=== PATIENT | male | born 1990 | race Caucasian/White ===

== ENCOUNTER 2017-12-22 17:38 | Emergency (ER) | payer BC ==
[2017-12-22] MEDS ORDERED: EPINEPHrine AMP 1 MG/ML IM ONE (17:43)
[2017-12-22] MEDS ORDERED: predniSONE TAB* 20 MG PO ONE (17:44)
[2017-12-22 17:45] VITALS: BP 136/79
[2017-12-22] MEDS ORDERED: EPINEPHRINE 1 MG/ML 1 ML VIAL ONE (17:45)
--- NOTE | 2017-12-22 17:59 | UC ---
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 stung left lower leg about thirty minutes after the sting he started feeling itchy noted the stinger was still in he removed it took benadryl arrived here with hives and angioedema (lips and lids) no throat tightness no cp/sob no n/v no hx of similar rx to stings - History of Current Complaint Chief Complaint: UCAllergicReaction Stated Complaint: BEE STING ALLEGRIC REACTION Time Seen by Provider: 12/22/17 17:43 Hx Obtained From: Patient Onset/Duration: Gradual Onset, Lasting Minutes Severity Initially: Mild Severity Currently: Moderate Pain Intensity: 0 Pain Scale Used: 0-10 Numeric Location: Diffuse - hives Character: Swelling - lids and lids Aggravating Factor(s): Nothing Alleviating Factor(s): Nothing Associated Signs And Symptoms: Positive: Rash - Related Hx Possible Reaction To: Insect - Allergies/Home Medications Allergies/Adverse Reactions: Allergies Allergy/AdvReac Type Severity Reaction Status Date / Time bee venom protein (honey bee) Allergy FLUSHING/LIP Verified 12/22/17 17:46 SWELLING Home Medications: Home Medications diphenhydrAMINE HCl [Benadryl Allergy 25 MG CAP] 50 mg PO ONCE PRN 12/22/17 [ History Confirmed 12/22/17] PMH/Surg Hx/FS Hx/Imm Hx Previously Healthy: Yes - Surgical History Surgical History: None - Family History Known Family History: Positive: Hypertension, Other - parents living and healthy , no one with immune compromise. - Social History Alcohol Use: Rare Substance Use Type: None Smoking Status (MU): Never Smoked Tobacco Type: Cigars Amount Used/How Often: TWICE A YR Length of Time of Smoking/Using Tobacco: 4-5 YRS Have You Smoked in the Last Year: Yes - Immunization History Most Recent Influenza Vaccination: not this season Review of Systems Constitutional: Negative Skin: Rash Eyes: Negative ENT: Negative Respiratory: Negative Cardiovascular: Negative Gastrointestinal: Negative Genitourinary: Negative Motor: Negative Neurovascular: Negative Musculoskeletal: Negative Neurological: Negative Psychological: Negative Is Patient Immunocompromised?: No All Other Systems Reviewed And Are Negative: Yes Physical Exam Triage Information Reviewed: Yes Appearance: Well-Appearing, No Pain Distress, Well-Nourished Vital Signs: Initial Vital Signs Temp 99.8 F 12/22/17 17:39 Pulse 98 12/22/17 17:39 Resp 22 12/22/17 17:39 BP 136/79 12/22/17 17:39 Pulse Ox 100 12/22/17 17:39 Vital Signs Reviewed: Yes Eyes: Positive: Conjunctiva Clear, Other: - lid edema ENT: Positive: Hearing grossly normal, TMs normal, Other - lip edema/no tongue edema/no stridor. Negative: Pharyngeal erythema, Nasal congestion, Nasal drainage, Tonsillar swelling, Tonsillar exudate, Trismus, Muffled voice, Hoarse voice Neck: Positive: Supple, Nontender, No Lymphadenopathy Respiratory: Positive: Lungs clear, Normal breath sounds, No respiratory distress, No accessory muscle use Cardiovascular: Positive: RRR Abdominal Exam: Normal Musculoskeletal: Positive: ROM Intact, No Edema Neurological Exam: Normal Neurological: Positive: Alert Psychological Exam: Normal Re-Evaluation - Re-Evaluation First Eval Re-Evaluation Time: 18:35 Change: Improved - lips only minimally swollen/urticaria almost gone Allergic Reaction Course/Dx - Differential Dx/Diagnosis Provider Diagnoses: analphylatic reaction to bee sting Discharge - Sign-Out/Discharge Documenting (check all that apply): Discharge - Discharge Plan Condition: Stable Disposition: HOME Prescriptions: EPINEPHrine [Epipen 2-Carlos] 0.3 mg IM ONCE #1 inj predniSONE [Deltasone] 40 mg PO DAILY #6 tab Patient Education Materials: Anaphylaxis (ED) Referrals: Enmanuel Fong MD [Medical Doctor] - Additional Instructions: YOU NEED TO FOLLOW UP WITH AN STENO TYPIST YOU NEED TO CARRY AN EPI PEN WITH YOU read and understand how to use it you need to seek medical care if you use it benadryl 25 mg 2 upto 4 times a day as needed I suggest you take another 50 mg tonight - Billing Disposition and Condition Condition: STABLE Disposition: HOME
== END 2017-12-22 18:41 | disposition home or self-care (01) ==
LOC: UCCORT 17:38
DX: T63.441A Toxic effect of venom of bees, accidental (unintentional), initial encounter (principal); L50.9 Urticaria, unspecified; Y92.9 Unspecified place or not applicable
CPT/HCPCS: 99212; G0463; J0171; J7512

== ENCOUNTER 2018-03-08 07:57 | Emergency (ER) | payer BC ==
[2018-03-08 08:20] VITALS: BP 125/73
--- NOTE | 2018-03-08 08:27 | UC ---
Truncal Trauma HPI - HPI Summary HPI Summary: Patient is a 27-year-old male who injured his left chest about a week ago. He states she was playing basketball and someone said a screen and hit him in the left anterior chest with her shoulder. Since then he has had left-sided chest pain. Pain worsens with deep breath, bending, or laying on his left side. He denies any abdominal pain. Spell his pain he has not missed any work. He is not short of breath. He has taken an occasional ibuprofen which seems to help. His baseline pain is 4 out of 10. If he coughs sneezes or turns in a certain way the pain markedly increases. He has been unable to jog or workout since the injury. - History Of Current Complaint Chief Complaint: UCGeneralIllness Stated Complaint: RIB,CHEST INJURY/PAIN Time Seen by Provider: 03/08/18 08:16 Hx Obtained From: Patient Onset/Duration: Sudden Onset, Lasting Days Onset Of Pain: Immediate Severity Initially: Moderate Pain Intensity: 4 Pain Scale Used: 0-10 Numeric Mechanism Of Injury: Direct Blow Aggravating Factor(s): Movement, Deep Breathing, Cough Alleviating factor(s): Rest, OTC Medication Associated Signs And Symptoms: Positive: Chest Pain - Allergies/Home Medications Allergies/Adverse Reactions: Allergies Allergy/AdvReac Type Severity Reaction Status Date / Time bee venom protein (honey bee) Allergy FLUSHING/LIP Verified 03/08/18 08:09 SWELLING Home Medications: Home Medications EPINEPHrine [Epipen 2-Carlos] 0.3 mg IM ONCE PRN 03/08/18 [History Confirmed ] PMH/Surg Hx/FS Hx/Imm Hx Previously Healthy: Yes - Surgical History Surgical History: None - Family History Known Family History: Positive: Hypertension, Other - parents living and healthy , no one with immune compromise. - Social History Alcohol Use: Rare Substance Use Type: None Smoking Status (MU): Never Smoked Tobacco Type: Cigars Amount Used/How Often: TWICE A YR Length of Time of Smoking/Using Tobacco: 4-5 YRS Have You Smoked in the Last Year: Yes - Immunization History Most Recent Influenza Vaccination: not this season Review of Systems Constitutional: Negative Skin: Negative Eyes: Negative ENT: Negative Respiratory: Negative Cardiovascular: Chest Pain Gastrointestinal: Negative Genitourinary: Negative Motor: Negative Neurovascular: Negative Musculoskeletal: Negative Neurological: Negative Psychological: Negative Is Patient Immunocompromised?: No All Other Systems Reviewed And Are Negative: Yes Physical Exam Triage Information Reviewed: Yes Appearance: Well-Appearing, No Pain Distress, Well-Nourished Vital Signs: Initial Vital Signs Temp 97.8 F 03/08/18 08:11 Pulse 66 03/08/18 08:11 Resp 18 03/08/18 08:11 BP 125/73 03/08/18 08:11 Pulse Ox 98 03/08/18 08:11 Vital Signs Reviewed: Yes Eyes: Positive: Conjunctiva Clear ENT: Positive: Hearing grossly normal. Negative: Nasal congestion, Nasal drainage, Trismus, Muffled voice, Dental tenderness Neck: Positive: Supple Respiratory: Positive: Lungs clear, Normal breath sounds, No respiratory distress, No accessory muscle use. Negative: Chest non-tender - left chest wall tenderness and pain with rib springing Cardiovascular: Positive: RRR, No Murmur Abdomen Description: Positive: Nontender Bowel Sounds: Positive: Present Musculoskeletal: Positive: ROM Intact, No Edema Neurological: Positive: Alert Psychological Exam: Normal Skin Exam: Normal Diagnostics - Laboratory Diagnostic Studies Completed/Ordered: POx 98% on RA comment: normal /not hypoxic - Radiology No standard instances Xray Interpretation: No Acute Changes - left ribs and PA chest Radiology Interpretation Completed By: Radiologist Truncal Trauma Course/Dx - Differential Dx/Diagnosis Provider Diagnoses: left rib contusion. possible occult rib fracture Discharge - Sign-Out/Discharge Documenting (check all that apply): Discharge/Admit/Transfer - Discharge Plan Condition: Stable Disposition: HOME Patient Education Materials: Rib Contusion (ED) Referrals: No Primary Care Phys,NOPCP [Primary Care Provider] - Additional Instructions: I suggest aleve or advil recheck for new or worsening symptoms or if not better in 2 weeks - Billing Disposition and Condition Condition: STABLE Disposition: Home
--- NOTE | 2018-03-08 08:50 | RAD ---
Indication: Left rib injury. 3 views of left ribs are reviewed. No definite fracture noted. Dual energy PA views of the chest demonstrate no pneumothorax. IMPRESSION: No evidence of left rib injury. No pneumothorax is noted.
== END 2018-03-08 09:01 | disposition home or self-care (01) ==
LOC: UCCORT 07:57
DX: S20.212A Contusion of left front wall of thorax, initial encounter (principal); W21.03XA Struck by baseball, initial encounter; Y93.64 Activity, baseball; Y92.9 Unspecified place or not applicable; F17.290 Nicotine dependence, other tobacco product, uncomplicated
CPT/HCPCS: 99211; G0463